=== PATIENT | male | born 1990 | race Caucasian/White ===

== ENCOUNTER 2018-05-04 19:47 | Emergency (ER) | payer OTHER ==
--- NOTE | 2018-05-04 20:03 | ED Physician Documentation ---
Chest Pain - HISTORIAN Historian: patient - HPI Chief Complaint: Chest Pain Onset: minutes Last known Well Date: 05/04/18 Last Known Well Time: 18:00 Context: rest Severity: moderate Quality: stabbing Chest Pain Radiation: no radiation Chest Pain Signs/Symptoms: denies: nausea, vomiting, diaphoresis, cool extremities, dizziness, dyspnea, tachypnea, tachycardia, hypotension, palpitations, weakness, other Worsened By: nothing Relieved By: nothing Further Comments: yes (27 year old male patient presents with complaint of chest pain. Patient reports sudden onset while he was watching TV accompanied with SOB. Denies N/V, denies diaphoresis. Denies previous episode.) - ROS CONST: none MS/LYMPH: none GI/: none EYES/ENT: none SKIN/ENDO: none NEURO/PSYCH: none - PAST HX [place] risk factors: no pertinent history DVT/PE Risk Factors: none TAD/AAA risk factors: none Neuro deficit: none GI disease: none Lung disease: none Allergies/Adverse Reactions: Allergies Allergy/AdvReac Type Severity Reaction Status Date / Time No Known Drug Allergies Allergy Verified 05/04/18 20:17 Home Medications: Ambulatory Orders Medication Instructions Recorded NK 05/04/18 - SOCIAL HX Smoking History: non-smoker - FAMILY HX Family HX: other (HTN, diabetes, CA). denies: CAD under 55, CAD over 55 - REVIEWED ASSESSMENTS Nursing Assessment Reviewed: Yes Vitals Reviewed: Yes Progress - Progress Progress: Chest pain resolved in Er. Patient's mom at bedside; reports patient under increased stress in the past 7- 10 days. ED Results Lab/Radiology - Orders Orders: ED Orders Category Date Time Status Place IV Lock 1T Care 05/04/18 19:56 Ordered CBC/PLATELET/DIFF Stat Lab 05/04/18 19:56 Ordered CMP Stat Lab 05/04/18 19:56 Ordered TROPONIN I (cTnI) Stat Lab 05/04/18 19:56 Ordered Urine drug screen [DRUG SCREEN URINE MEDICAL ONLY] Stat Lab 05/04/18 19:56 Ordered EKG WITH COMPARISON Stat Ther 05/04/18 19:56 Ordered Chest Pain Physical Exam - EXAM General Appearance: anxious EENT: eye inspection normal, [place] Respiratory: no resp. distress, chest non-tender (not reproducible with palpation), nml breath sounds CVS: reg. rate & rhythm, no murmur, no gallop, no friction rub, pulses full, pulses equal Abdomen: soft, no organomegaly, normal bowel sounds, no abdominal bruit, no distension Skin: normal color, warm/dry, NR, INT, DR Extremities: non-tender, normal range of motion, no evidence of injury, no edema, J, PATIENT FINANCIAL REPRESENTATIVE Neuro: oriented X3, CN's nml as tested, motor nml, sensation nml, mood/affect nml Discharge Clincal Impression: Chest pain, non-cardiac, Panic attack Referrals: Socorro Garnica MD [Primary Care Provider] - 2 Days Additional Instructions: Rest Tylenol or ibuprofen as needed for discomfort Make an follow Er appointment with your primary care doctor by Wednesday Return to the ER if you have Chest pain with shortness of breath, nausea and sweating all over. Or pain radiating to jaws or shoulders. Condition: Stable Disposition: 01 HOME, SELF-CARE Decision to Admit: NO Decision Time: 20:48
[2018-05-04 20:26] LABS: eGFR (Non-African) > 60
[2018-05-04 20:28] LABS: EOSINOPHILS % 1.6 % (0.0-6.8); MEAN CORPUSCULAR HEMOGLOBIN 29.2 pg (28.0-34.0); MONOCYTES % 5.6 % (0.0-11.0); NEUTROPHILS # 4.4 # k/uL (1.4-7.7)
[2018-05-04 21:14] VITALS: BP 144/85
[2018-05-05 00:15] LABS: CANNABINOIDS NEGATIVE ng/mL (< 50); METHYLENEDIOXYMETHAMPHETAMINE NEGATIVE ng/mL (<500)
== END 2018-05-04 21:05 | disposition home or self-care (01) ==
LOC: ED 19:47
DX: F41.9 Anxiety disorder, unspecified (principal); R07.89 Other chest pain
CPT/HCPCS: 36415; 80053; 80377; 84484; 85025; 85379; 99282; 99283; G0481; S1016